=== PATIENT | female | born 1990 | race Asian ===

== ENCOUNTER 2016-07-14 12:12 | Emergency (ER) | payer OTHER ==
[2016-07-14] MEDS ORDERED: SODIUM CHLORIDE 0.9% 1,000 ML IV ONE (13:16)
[2016-07-14] MEDS ORDERED: ONDANSETRON 4 MG/2 ML VIAL IVP STA (13:16)
[2016-07-14] MEDS ORDERED: ONDANSETRON 4 MG/2 ML VIAL ONE (13:36)
== END 2016-07-14 15:10 | disposition home or self-care (01) ==
DX: O21.0 Mild hyperemesis gravidarum (principal); Z3A.01 Less than 8 weeks gestation of pregnancy

== ENCOUNTER 2016-09-03 09:22 | Outpatient (CLI) | payer OTHER ==
[2016-09-03 12:51] LABS: BASOPHILS % (AUTO) 0.3 %; EOSINOPHILS # (AUTO) 0.2 10^3/uL (0.0-0.7); EOSINOPHILS % (AUTO) 3.6 %; HCT - HEMATOCRIT 36.3 % (37.0-47.0); HGB - HEMOGLOBIN 12.6 g/dL (12.0-16.0); LYMPHOCYTES # (AUTO) 1.4 10^3/uL (1.5-3.5); LYMPHOCYTES % (AUTO) 21.6 %; MEAN CORPUSCULAR HEMOGLOBIN 29.9 pg (27.0-31.0); MEAN CORPUSCULAR HGB CONC 34.8 g/dL (32.0-36.0); MEAN CORPUSCULAR VOLUME 86.1 fL (81.0-99.0); MEAN PLATELET VOLUME 9.5 fL (7.9-10.8); MONOCYTES # (AUTO) 0.4 10^3/uL (0.0-1.0); MONOCYTES % (AUTO) 6.2 %; NEUTROPHILS # (AUTO) 4.6 10^3/uL (1.5-6.6); NEUTROPHILS % (AUTO) 68.3 %; RED BLOOD COUNT 4.22 10^6/uL (4.20-5.40); UNCORRECTED WHITE BLOOD COUNT 6.7 x10^3/uL; WHITE BLOOD COUNT 6.7 x10^3/uL (4.8-10.8)
[2016-09-03 12:56] LABS: PH,URINE 6.5 PH (5.0-7.5)
[2016-09-03 13:02] LABS: BILIRUBIN,URINE NEGATIVE (NEGATIVE)
[2016-09-08 18:01] LABS: TEST RESULT REPORT (())
== END 2016-09-03 09:23 | disposition home or self-care (01) ==
LOC: LAB.N 09:22
PROVIDERS: ATTEND Obstetrics & Gynecology
DX: Z36 Encounter for antenatal screening of mother (principal)
CPT/HCPCS: 36415; 81001; 81599; 82947; 85025; 86762; 86780; 86850; 86900; 86901; 87340; 87389

== ENCOUNTER 2016-10-06 07:14 | Outpatient (CLI) | payer OTHER ==
[2016-10-06 07:46] VITALS: BP 118/56
[2016-10-06 08:54] LABS: HEMOGLOBIN A1C 0.4 g/dL
== END 2016-10-06 08:25 | disposition home or self-care (01) ==
LOC: WFO 07:14 → FBP 07:17 → WFO 08:25
PROVIDERS: ATTEND Obstetrics & Gynecology
DX: O99.89 Other specified diseases and conditions complicating pregnancy, childbirth and the puerperium (principal); R10.9 Unspecified abdominal pain; R11.0 Nausea; Z3A.20 20 weeks gestation of pregnancy
CPT/HCPCS: 36415; 83036; 99212

== ENCOUNTER 2016-10-14 07:33 | Outpatient (CLI) | payer OTHER ==
--- NOTE | 2016-10-14 10:43 | Ultrasound Report ---
OB ULTRASOUND: 10/14/2016 CLINICAL INDICATION: anatomy. TECHNIQUE: Real-time scanning was performed with underwriting service representative static images obtained. LAST MENSTRUAL PERIOD 05/13/2016 Clinical Age 21 weeks 4 days US Age 20 weeks 4 days EFW Hadlock 358 g EFW% Hadlock 7% Heart Rate 139 bpm EDC 02/20/2017 US EDC 02/27/2017 BPD [place] 20 weeks 5 days; Mean mm 48.8 HC [place] 20 weeks 4 days; Mean mm 181.4 AC [place] 20 weeks 2 days; Mean mm 149.8 FL [place]lock 20 weeks 6 days; Mean mm 34.3 Presentation cephalic Placental Location anterior Cervical Length 3.6 cm Amniotic Fluid 11.7 cm FINDINGS: There is a single viable intrauterine gestation, in cephalic presentation. heart rate is 139 BPM. The placenta is anterior, without evidence of previa. Amniotic fluid volume is normal, with an JEREMIAH of 11.7. By size, the fetus measures 20.6 weeks (uncertain LMP). The following anatomic structures were visualized and appear normal: The intracranial contents, including the ventricles and posterior fossa; the lips and orbits; the spine; the heart, including 4 chamber view and outflow tracts, and diaphragm; the abdominal contents, including the stomach, the bilateral kidneys, and urinary bladder, as well as a normal 3 vessel cord insertion; 4 limbs. No free fluid or adnexal lesion is appreciated. IMPRESSION: SINGLE VIABLE INTRAUTERINE GESTATION, MEASURING 20.6 WEEKS BY SIZE. NORMAL ANATOMIC SURVEY. [facility]
== END 2016-10-14 07:34 | disposition home or self-care (01) ==
LOC: DI 07:33
PROVIDERS: ATTEND Obstetrics & Gynecology
DX: Z34.82 Encounter for supervision of other normal pregnancy, second trimester (principal)
CPT/HCPCS: 76811

== ENCOUNTER 2016-11-12 09:39 | Outpatient (CLI) | payer OTHER ==
[2016-11-12 19:09] LABS: HCT - HEMATOCRIT 35.9 % (37.0-47.0); HGB - HEMOGLOBIN 12.1 g/dL (12.0-16.0); MEAN CORPUSCULAR HEMOGLOBIN 30.7 pg (27.0-31.0); MEAN CORPUSCULAR HGB CONC 33.6 g/dL (32.0-36.0); MEAN CORPUSCULAR VOLUME 91.4 fL (81.0-99.0); MEAN PLATELET VOLUME 9.3 fL (7.9-10.8); RED BLOOD COUNT 3.93 10^6/uL (4.20-5.40); RED CELL DISTRIBUTION WIDTH 13.4 % (12.0-15.0); WHITE BLOOD COUNT 8.3 x10^3/uL (4.8-10.8)
== END 2016-11-12 09:40 | disposition home or self-care (01) ==
LOC: LAB.N 09:39
PROVIDERS: ATTEND Obstetrics & Gynecology
DX: Z36 Encounter for antenatal screening of mother (principal)
CPT/HCPCS: 36415; 82950; 86850

== ENCOUNTER 2017-01-27 08:00 | Outpatient (CLI) | payer OTHER | END 2017-01-27 08:01 | disposition home or self-care (01) | LOC: LAB.R 08:00 | PROVIDERS: ATTEND Obstetrics & Gynecology | DX: Z36.89 Encounter for other specified antenatal screening (principal) | CPT/HCPCS: 87081 ==

== ENCOUNTER 2017-03-02 07:31 | Inpatient (IN) | payer OTHER ==
[2017-03-02 08:17] LABS: BASOPHILS % (AUTO) 0.3 %; EOSINOPHILS # (AUTO) 0.2 10^3/uL (0.0-0.7); HGB - HEMOGLOBIN 14.7 g/dL (12.0-16.0); LYMPHOCYTES # (AUTO) 1.7 10^3/uL (1.5-3.5); LYMPHOCYTES % (AUTO) 15.9 %; MEAN CORPUSCULAR HEMOGLOBIN 30.9 pg (27.0-31.0); MEAN CORPUSCULAR HGB CONC 34.8 g/dL (32.0-36.0); MEAN CORPUSCULAR VOLUME 88.7 fL (81.0-99.0); MEAN PLATELET VOLUME 9.5 fL (7.9-10.8); MONOCYTES # (AUTO) 0.7 10^3/uL (0.0-1.0); MONOCYTES % (AUTO) 6.2 %; NEUTROPHILS # (AUTO) 8.1 10^3/uL (1.5-6.6); NEUTROPHILS % (AUTO) 75.6 %; PLT - PLATELET COUNT 165 10^3/uL (130-450); RED BLOOD COUNT 4.75 10^6/uL (4.20-5.40); RED CELL DISTRIBUTION WIDTH 12.6 % (12.0-15.0); WHITE BLOOD COUNT 10.7 x10^3/uL (4.8-10.8)
[2017-03-02] MEDS ORDERED: fentaNYL 100 MCG/2 ML VIAL IVP PRN (08:22)
[2017-03-02] MEDS ORDERED: SODIUM CHLORIDE FLUSH 0.9% 10 ML SYRINGE IVP PRN ×2 (08:22→09:36)
[2017-03-02] MEDS ORDERED: ACETAMINOPHEN 325 MG TABLET PO SCH (09:00)
[2017-03-02] MEDS ORDERED: OXYTOCIN/SODIUM CHLORIDE 250 ML IV SCH (09:30)
[2017-03-02] MEDS: LACTATED RINGERS 1,000 ML IV SCH ×3 (09:54→18:53)
[2017-03-02] MEDS ORDERED: LACTATED RINGERS 1,000 ML IV SCH (10:00)
[2017-03-02] MEDS: NEOMYCIN/BACITRA/POLYMYX OINT PACKET TOP SCH ×3 (10:17→23:02)
--- NOTE | 2017-03-02 12:08 | HISTORY & PHYSICAL EXAMINATION ---
DATE OF SERVICE: Physician: Miah Haro MD DIAGNOSES 1. A 41 week 3 day gestation. 2. Uterine contractions, insufficient for progress of labor. 3. Skin Wound L Thigh HISTORY OF PRESENT ILLNESS: This is a 26-year-old [place]ian, 2, para 1- 0-0-1 woman at 41 weeks and 3 days gestation who presents for a planned induction but was noted to have regular uterine contractions without rupture of membranes. Her EDC is 02/20/2017 based on 11-week crown rump length and she [facility]. She reports no signs or symptoms of preeclampsia, fevers/chills, or recent illness. LABS: Chlamydia GC negative. hepatitis B, C, surface antigen negative Blood type O positive, antibody screen negative, RPR negative, rubella immune. Urinalysis negative. Pap smear normal. Glucose challenge test normal at 100 and a group B strep negative. Also, . Last delivery was in 2012 of a 41 week female infant without difficulty. PAST MEDICAL HISTORY: No chronic disease history, or recent problems. PAST SURGICAL HISTORY: Negative. ALLERGIES: NONE. MEDICATIONS: vitamins with iron. FAMILY HISTORY: Genetic screening negative. No familial diseases or genetic problems. SOCIAL HISTORY: . No drug, tobacco or alcohol use reported. 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 REVIEW OF SYSTEMS: CONSTITUTIONAL: Negative. HEENT: Negative. RESPIRATORY: Negative. CARDIAC: Negative. GASTROINTESTINAL: Negative. GENITOURINARY: Negative. MUSCULOSKELETAL: Negative. NEURO: Negative. PSYCHOLOGICAL: Negative. PHYSICAL EXAMINATION: GENERAL: Well groomed comfortable in bed. VITAL SIGNS: Normotensive. HEENT: Neck supple. NECK: No thyromegaly. Dentition in good repair. LUNGS: Clear to auscultation. CARDIAC: Regular. No murmur. No gallop. ABDOMEN: Nondistended. No hepatosplenomegaly. PELVIC: Uterus appropriate size estimate a 7.5-8 pound fetus vertex presentation. Very mild contractions noted. EXTERNAL MONITOR: Category 1. Contractions every 3 minutes. Baseline 150s. Variability present. No worrisome decels. EXTERNAL GENITALIA: Shaven no lesions. Vagina, no blood or discharge. CERVIX: 2 cm, 50% mid position. Soft, 0 station, change from baseline exam on . EXTREMITIES: Skin lesion on right inner thigh suspicious for staph. NEUROLOGIC: Grossly intact. LABORATORY DATA: Labs pending. ASSESSMENT: This is a 41 weeks 3 days gestation who was originally a candidate for induction but presents in early labor. The contraction quality is judged insufficient for progress of labor and therefore, Pitocin augmentation was begun. We had a formal benefit and risk counseling session and informed consent paperwork was signed. PLAN 1. Pitocin augmentation. 2. The patient allowed to ambulate. 3. Currently, the patient is cool to epidural, but will take fentanyl. She was encouraged to reconsider. 4. Culture skin lesion on left thigh, apply neomycin and bandage TD: 03/02/2017 13:06 DANII
--- NOTE | 2017-03-02 12:46 | PROVIDER PROGRESS NOTE ---
Labor Progress Note - Uterine Monitoring Uterine Monitoring Mode: positive: External toco Contraction Frequency (min/apart): Every 35 minutes : AROM, clear fluid Contraction Intensity: positive: Moderate Uterine Resting Tone: positive: Soft - Monitoring Monitor Mode: positive: External ultrasound Heart Rate Baseline: [id number] Heart Rate Variability: positive: Moderate (6-25 bmp) Accelerations: positive: Present, 15x15 Decelerations: positive: None Strip Review: positive: Category I - Vaginal Exam Dilation (in cm): 3 Effacement (%): 60% Station: 0 Cervical Position: Midposition - Labor Progress Note Labor Progress Note/Additional Text: With Pitocin augmentation patient's contractions are strong enough to move her through the latent phase of labor as expected. There is evidence of progressive cervical change. There are no concerns about well-being. Discussed progress with the patient and her . At this time she does not desire epidural. The membranes were ruptured with a small amount of clear fluid noted
[2017-03-02] MEDS: SODIUM CHLORIDE FLUSH 0.9% 10 ML SYRINGE IVP SCH ×2 (13:51→15:26)
[2017-03-02] MEDS ORDERED: SODIUM CHLORIDE FLUSH 0.9% 10 ML SYRINGE IVP SCH (14:00)
--- NOTE | 2017-03-02 15:00 | PROVIDER PROGRESS NOTE ---
Labor Progress Note - Uterine Monitoring Uterine Monitoring Mode: positive: External toco Contraction Frequency (min/apart): Every 2-3 minutes Contraction Intensity: positive: Moderate Uterine Resting Tone: positive: Soft - Monitoring Monitor Mode: positive: External ultrasound Heart Rate Baseline: 140 Heart Rate Variability: positive: Moderate (6-25 bmp) Accelerations: positive: Present, 15x15 Decelerations: positive: None Strip Review: positive: Category I - Vaginal Exam Dilation (in cm): 8 Effacement (%): 80% Station: 0 Cervical Position: Anterior - Labor Progress Note Labor Progress Note/Additional Text: Active phase labor. Pitocin augmentation
--- NOTE | 2017-03-02 15:01 | DELIVERY NOTE ---
Delivery Note - Labor Labor: positive: Augmented by oxytocin - Delivery Method Delivery Method: positive: Spontaneous vaginal delivery - Presentation Presentation: positive: Vertex - Nuchal Cord Nuchal Cord: positive: Present (Tight nuchal cord 1, factor in delivery) - Anesthetic Anesthetic Type: - Amniotic Fluid Description Amniotic Fluid Description: positive: Clear - Episiotomy Type Episiotomy Type: positive: None - Laceration Laceration: positive: None - Delivery Outcome Delivery Outcome: positive: Livebirth - [place] : positive: Suctioned - Cord Cord: positive: 3 vessels - Placenta Placenta: positive: Intact - Estimated Blood Loss Estimated Blood Loss (in cc): 200 - Post Delivery Events Post Delivery Events: positive: No post delivery events - Delivery Comments (Free Text/Narrative) Delivery Comments (Free Text/Narrative): Living female infant; Apgars 7/9; weight pending
[2017-03-02] MEDS ORDERED: LIDOCAINE 1% 50 ML MDV ONE (16:02)
[2017-03-02] MEDS ORDERED: MINERAL OIL LIGHT 10 ML MC ONE (16:02)
[2017-03-02] MEDS ORDERED: OXYTOCIN/SODIUM CHLORIDE 250 ML IV ONE (17:29)
[2017-03-02] MEDS ORDERED: MAGNESIUM HYDROXIDE 2,400 MG/30 ML UDC PO PRN (17:29)
[2017-03-02] MEDS ORDERED: ONDANSETRON 4 MG/2 ML VIAL IVP PRN (17:29)
[2017-03-02] MEDS ORDERED: diphenhydrAMINE 25 MG CAPSULE PO PRN (17:29)
[2017-03-02] MEDS ORDERED: WITCH HAZEL/GLYCERIN 1 EACH MED..PAD TOP PRN (17:29)
[2017-03-02] MEDS ORDERED: HYDROCORTISONE/PRAMOXINE 10 GM PR PRN (17:29)
[2017-03-02] MEDS ORDERED: oxyCODONE 5 MG TABLET PO PRN (17:29)
[2017-03-02] MEDS: ACETAMINOPHEN 500 MG TABLET PO SCH ×2 (19:42→22:38)
[2017-03-02] MEDS: IBUPROFEN 600 MG TABLET PO SCH ×2 (20:30→22:36)
[2017-03-02] MEDS: DOCUSATE SODIUM 100 MG CAPSULE PO SCH ×2 (22:16→22:39)
[2017-03-03] MEDS: IBUPROFEN 600 MG TABLET PO SCH ×4 (04:40→21:32)
--- NOTE | 2017-03-03 06:22 | PROCEDURE REPORT ---
DATE OF SERVICE: 03/02/2017 Physician: Miah Haro MD PRE-DELIVERY DIAGNOSES 1. A 41 week, 3 day gestation. 2. Uterine contractions, insufficient for progress of labor. 3. Pitocin augmentation. POST DELIVERY DIAGNOSES 1. A 41 week, 3 day gestation. 2. Uterine contractions, insufficient for progress of labor. 3. Pitocin augmentation. 4. Nuchal cord x1 (tight). PROCEDURE: Manually assisted vaginal delivery of a living female infant. FOUR SLIDE MACHINE OPERATOR: Miah Haro MD SURGEON: Miah Haro MD, FACOG, [facility] BLOOD LOSS: 200. COMPLICATIONS: None. DRAINS: None. FINDINGS 1. Living female infant weighing 8 lbs 0.8 oz and scoring Apgars of 7/9. No obvious congenital anomalies or trauma. The patient responded to stimulation. 2. A 3-vessel cord. Tight nuchal cord, which was a factor in delivery. Intact placenta without evidence of abruption or infection. 3. Perineum, vagina, and cervix completely intact. Uterus responded well to massage and bleeding minimal. TECHNIQUE: The patient was allowed to labor down and remained composed. She reported a strong urge to push and was found to be at +3 station. She quickly brought the head to +4 station and began to push without difficulty. Rosa maneuver was used to slow the delivery of the head and to milk the perineum. The head atraumatically crowned. The shoulders were tight, but not a dystocia. Controlled delivery of the shoulders was effected. Prior to delivery of shoulders, a tight nuchal cord was found, doubly clamped, and transected. female was placed on the maternal abdomen for stimulation. She was then taken to the warmer for evaluation. Cord blood sample was taken. A segment of cord was clamped and placed on the back table if cord gases were required. Cord gases were not required. The patient began to push with good effort and expelled the placenta intact. There was minimal bleeding. Thefemale genital tract was inspected and found to be undamaged. Uterus was firm. Mother, father, and sister all bonded well with the . Labs: Rh positive, rubella immune, RPR negative. TD: 03/03/2017 07:21 [facility]
[2017-03-03] MEDS: ACETAMINOPHEN 500 MG TABLET PO SCH ×2 (06:30→15:15)
[2017-03-03] MEDS: LACTATED RINGERS 1,000 ML IV SCH (07:53)
[2017-03-03] MEDS: SODIUM CHLORIDE FLUSH 0.9% 10 ML SYRINGE IVP SCH (07:53)
--- NOTE | 2017-03-03 09:18 | PROVIDER PROGRESS NOTE ---
Subjective - General Admit Date: 03/02/17 Procedure Date: 03/02/17 Post Op Days: 1 Procedure Performed: Normal vaginal delivery without lacerations - Review of Systems Wound/Incisions: positive: Healing well Drain Type: 0 General: positive: No symptoms, Fatigue HEENT: positive: No symptoms Pulmonary: positive: No symptoms Cardiovascular: positive: No symptoms Gastrointestinal: positive: No symptoms Genitourinary: positive: No symptoms Musculoskeletal: positive: No symptoms Skin: positive: No symptoms (Wound stable and healing with ointment), Other Psychiatric: positive: No symptoms Objective - Patient Data Vital Signs: Vital Signs x48h Temp Pulse Resp BP Pulse Ox 03/03/17 04:42 98.8 F 71 24 112/57 L 100 Weight: Weight 03/01/17 03/02/17 03/03/17 23:59 23:59 23:59 Weight (kg) 85.275 kg Intake & Output: Intake and Output Totals x24h 03/01/17 03/02/17 03/03/17 23:59 23:59 23:59 Intake Total 985 Output Total 900 Balance 85 - Lab Results Lab Results: 03/02/17 08:06 Other Lab Results: Lab Results x24hrs 03/02/17 Range/Units 08:06 Blood Type O POSITIVE Antibody Screen NEGATIVE - Current Medications Current Medications: Current Medications Generic Name Dose Route Start Last Admin Trade Name Freq PRN Reason Stop Dose Admin Acetaminophen 1,000 mg 03/02/17 18:00 03/03/17 06:30 Tylenol PO 1,000 mg Q8H LUIS FERNANDO Administration Docusate Sodium 100 mg 03/02/17 21:00 03/02/17 22:39 Colace 100mg Capsule PO 100 mg BID LUIS FERNANDO Administration Lactated Ringer's 1,000 mls @ 100 mls/hr 03/02/17 18:00 03/03/17 07:53 Lr IV Not Given .Q10H LUIS FERNANDO Ibuprofen 600 mg 03/02/17 18:00 03/03/17 04:40 Motrin PO 600 mg Q6H LUIS FERNANDO Administration Neomycin/Polymyxin/Bacitracin 1 packet 03/02/17 09:00 03/02/17 23:02 Neosporin Oint Pkt TOP 1 packet BID LUIS FERNANDO Administration Sodium Chloride 10 ml 03/02/17 14:00 03/03/17 07:53 Normal Saline Flush 0.9% IVP Not Given Q8HR LUIS FERNANDO Assessment/Plan - Assessment/Plan Assessment: Patient walking and attending to infant. She states that she is sore tired and requires more time to recuperate. Nursing working on and latch on methods. Another day of hospitalization Required Plan: Supportive care
[2017-03-03] MEDS: DOCUSATE SODIUM 100 MG CAPSULE PO SCH ×2 (09:30→21:32)
[2017-03-03] MEDS: NEOMYCIN/BACITRA/POLYMYX OINT PACKET TOP SCH (09:31)
[2017-03-04] MEDS: ACETAMINOPHEN 500 MG TABLET PO SCH (04:50)
[2017-03-04] MEDS: IBUPROFEN 600 MG TABLET PO SCH ×2 (04:51→10:50)
--- NOTE | 2017-03-04 07:36 | Discharge Plan ---
Discharge Plan Disposition: 01 Home, Self Care Condition: Good Diet: Regular Activity Restrictions: No Restrictions Shower Restrictions: No Driving Restrictions: No Additional Instructions or Follow Up instructions: Patient should follow-up in the office 2 weeks after delivery for standard follow-up and left wound check. At home she should apply Neosporin or bacitracin to the wound daily.Shower and wash as normal. No Smoking: If you smoke, Please STOP! Call for help. Follow-up with: Miah Haro MD [Provider Admit Priv/Credential] -
--- NOTE | 2017-03-04 08:07 | DISCHARGE SUMMARY ---
DATE OF SERVICE: Physician: Miah Haro MD DATE OF ADMISSION: 03/02/2017 DATE OF DISCHARGE: 03/04/2017 DIAGNOSES 1. A 41 week, 3 day gestation in early labor. 2. Pitocin augmentation. 3. Skin wounds left thigh infected with Staph. 4. Tight nuchal cord. PROCEDURE: Vaginal delivery over an intact perineum of a living female (Tahir). HOSPITAL COURSE: The patient is a 26-year-old Vietnamese, 2, para 1-0-0-1 woman at 41 weeks a nd 3 days gestation who was originally a planned induction but was found to be in early labor on presentation. Her EDC was 02/20/2017 confirmed by a 11 week crown rump length. Her care was essentially unremarka ble. Reference typewritten H and P. LABORATORY: Blood type O positive without antibodies. RPR negative. Rubella immune. GC, chlamydia negative. Urinalysis negative. Pap normal. Glucola challenge test 100 and a group B strep negative . HOSPITAL COURSE: The patient was admitted and found to progress to 2 cm, 50% and mid position at 0 s tation. She was begun on Pitocin augmentation. The heart tracing remained stable throughout. Roughly 4 hours into the labor she underwent artificial rupture of membranes that revealed clear nonfoul fluid. The patient moved through the active phase and only had a rare dose of fentanyl. The left thigh lesion was dress ed with bacitracin and covered with a bandage for delivery. The patient underwent an uneventful vaginal delivery at 1647 hours. There was a tight nuchal cord th at was doubly clamped and transected to allow delivery. There was no shoulder dystocia. A living 8 pound 0 .8 ounce female was born scoring Apgars of 7 and 9. Reference delivery note. Placenta was delivered intact. Total blood loss was 200 and no complications noted. Post-delivery, the patient gradually regained self-care and care abilities. She was coached o n breast feeding and spent post-delivery day 1 working on recovering from her delivery. By the second postpar shane day, she was recovered and desired discharge. Complete discharge instructions were given, including warni ng and callback instructions. DISCHARGE MEDICATIONS 1. [id number] Motrin for pain. 2. vitamins with iron. 3. Neosporin to apply on her thigh. Follow up will be in 2 weeks to check on her recovery and to ensure that the small thigh wound is rec overed. No sensitivities still pending. TD: 03/04/2017 09:06
[2017-03-04] MEDS: DOCUSATE SODIUM 100 MG CAPSULE PO SCH (09:08)
[2017-03-04 12:28] VITALS: BP 109/67
--- NOTE | 2017-03-04 15:13 | Labor Flowsheet ---
Labor Flowsheet Datetime Report Generated by CPN: 03/04/2017 15:13 Datetime: 03/04/2017 12:16 VITAL SIGNS NBP Sys/Freda/Mean (mmHg): 109 : 67 : 77 Pulse: 78 LaborFlag: Labor Datetime: 03/02/2017 19:09 SpO2 (%): 100 Datetime: 03/02/2017 16:53 Membrane Comments: Placenta @1653 Datetime: 03/02/2017 16:50 Comments: @1650 Datetime: 03/02/2017 16:48 UTERINE ACTIVITY Monitor Mode: External Frequency (min): 1-1.5 Quality: Strong Duration (sec): 40-80 Pattern: Normal: <= 5 Contractions in 10 Minutes Resting Tone (Palpate): Relaxed ASSESSMENT A Monitor Mode: External US FHR Baseline Changes: No Baseline Change Variability: Moderate 6-25 bpm Accelerations: 15X15 Decelerations: Early Category: Category I Datetime: 03/02/2017 16:43 COMMUNICATION Communication Comments: dr. xiong aware pt is complete Datetime: 03/02/2017 16:21 Patient Care Comments: pt up to BR Datetime: 03/02/2017 16:13 MEDICATIONS Pitocin (milliunits): Increased to @ 9 Datetime: 03/02/2017 15:39 Respirations: 20 Temperature (C): 36.6 Temperature Route: Oral Datetime: 03/02/2017 15:30 Monitor Interventions for UA: [place] Adjusted FHR Baseline Rate : 140 Datetime: 03/02/2017 15:28 Pain Relief Measures: Pain Medication Given Analgesics/Sedatives: Fentanyl (mcg) @ 50 Datetime: 03/02/2017 15:09 PATIENT CARE IV/Blood Work: IV Started Datetime: 03/02/2017 15:06 VAGINAL EXAM Dilatation (cm): 9.0 Effacement (%): 90 Station: 1 Exam by: Dr. Xiong Vaginal Bleeding: None Cervix, Consistency: Soft Cervix, Position: Anterior Vaginal Exam Comments: anterior lip Datetime: 03/02/2017 14:50 I/O Interventions: Up to BR Datetime: 03/02/2017 14:31 Stage of : Labor Datetime: 03/02/2017 14:16 Pain Assessment Comments: Per "faces chart" pt at 7/10 pain. States 4/10. Datetime: 03/02/2017 13:06 Monitor Interventions for FHR: Ultrasound Adjusted Datetime: 03/02/2017 13:00 Contraction Comments: Pt states mild cramping PAIN Pain Scale: 2 Pain Presence: Intermittent Pain Type: Cramping Pain Location: Abdomen Datetime: 03/02/2017 12:35 Membrane Status: Ruptured Membranes Rupture Method: Artificial Amniotic Fluid Color: Clear Amniotic Fluid Amount: Small Amniotic Fluid Odor: Normal Datetime: 03/02/2017 10:34 Patient Position/Activity: Right Lateral Datetime: 03/02/2017 10:00 Pitocin Checklist: At Least 1 Acceleration of 15 bpm x 15 Seconds in 30 Minutes or Adequate Variabi lity; No More than 1 Late Deceleration Occurred in Past 30 Minutes; No More than 5 Uterine Contractio ns in 10 Minutes for any 20 Minute Interval; Uterus Palpates Soft between Contractions Datetime: 03/02/2017 08:45 Membranes Ruptured Date/Time: 03/02/2017 12:34 Datetime: 03/02/2017 08:30 Oxygen Method: Room Air Datetime: 03/02/2017 07:56 Strip Reviewed by: Dr. Xiong
== END 2017-03-04 13:50 | disposition home or self-care (01) | DRG 775 ==
LOC: WFO 07:31 → FBP 07:32 → OBSVTOIN 08:22
PROVIDERS: ADMIT Obstetrics & Gynecology; ATTEND Obstetrics & Gynecology
PROC: 10E0XZZ Delivery of Products of Conception, External Approach (ICD-10-PCS; principal; 2017-03-02)
DX: O48.0 Post-term pregnancy (principal); O69.1XX0 Labor and delivery complicated by cord around neck, with compression, not applicable or unspecified; O9A.22 Injury, poisoning and certain other consequences of external causes complicating childbirth; S70.311D Abrasion, right thigh, subsequent encounter; B95.8 Unspecified staphylococcus as the cause of diseases classified elsewhere; Z3A.41 41 weeks gestation of pregnancy; Z37.0 Single live birth
CPT/HCPCS: 36415; 85025; 86850; 86900; 86901; 87070; 87205

== ENCOUNTER 2017-06-18 08:00 | Outpatient (CLI) | payer OTHER ==
[2017-06-18 12:53] LABS: BASOPHILS % (AUTO) 0.7 %; EOSINOPHILS # (AUTO) 0.3 10^3/uL (0.0-0.7); EOSINOPHILS % (AUTO) 5.3 %; HGB - HEMOGLOBIN 13.8 g/dL (12.0-16.0); LYMPHOCYTES # (AUTO) 1.7 10^3/uL (1.5-3.5); LYMPHOCYTES % (AUTO) 29.8 %; MEAN CORPUSCULAR HEMOGLOBIN 29.9 pg (27.0-31.0); MEAN CORPUSCULAR HGB CONC 33.3 g/dL (32.0-36.0); MEAN CORPUSCULAR VOLUME 89.9 fL (81.0-99.0); MEAN PLATELET VOLUME 9.3 fL (7.9-10.8); MONOCYTES # (AUTO) 0.5 10^3/uL (0.0-1.0); MONOCYTES % (AUTO) 8.5 %; NEUTROPHILS # (AUTO) 3.1 10^3/uL (1.5-6.6); NEUTROPHILS % (AUTO) 55.7 %; PLT - PLATELET COUNT 257 10^3/uL (130-450); RED BLOOD COUNT 4.63 10^6/uL (4.20-5.40); RED CELL DISTRIBUTION WIDTH 12.8 % (12.0-15.0); WHITE BLOOD COUNT 5.6 x10^3/uL (4.8-10.8)
[2017-06-18 13:38] LABS: CHOL/HDL RATIO 3.3 (<4.4); CHOLESTEROL 132 mg/dL; GLUCOSE 83 mg/dL (70-100); HDL CHOLESTEROL 40 mg/dL
[2017-06-18 13:46] LABS: HB2 TOTAL 15.6 g/dL; HEMOGLOBIN A1C 0.47 g/dL; HEMOGLOBIN A1C % 4.9 % (4.6-6.2)
[2017-06-18 14:29] LABS: LDL CHOLESTEROL,DIRECT 75 mg/dL; LDLD/HDL RATIO 1.9 (<4.4)
== END 2017-06-18 08:01 | disposition home or self-care (01) ==
LOC: LAB.N 08:00
PROVIDERS: ATTEND Obstetrics & Gynecology
DX: Z13.0 Encounter for screening for diseases of the blood and blood-forming organs and certain disorders involving the immune mechanism (principal); Z13.1 Encounter for screening for diabetes mellitus; Z13.220 Encounter for screening for lipoid disorders
CPT/HCPCS: 36415; 80061; 82947; 83036; 83721; 84443; 85025

== ENCOUNTER 2019-08-02 15:14 | Outpatient (CLI) | payer OTHER ==
[2019-08-03 05:26] LABS: PROGESTERONE 0.5 ng/mL
== END 2019-08-02 15:15 | disposition home or self-care (01) ==
LOC: LAB 15:14
PROVIDERS: ATTEND Advanced Practice Midwife
DX: Z31.69 Encounter for other general counseling and advice on procreation (principal)
CPT/HCPCS: 36415; 81599; 82670; 83001; 83520; 84144

== ENCOUNTER 2019-10-07 17:44 | Outpatient (CLI) | payer OTHER ==
--- NOTE | 2019-10-08 00:17 | Ultrasound Report ---
PROCEDURE: Pelvic w/Transvaginal INDICATIONS: PRECONCEPTION COUNSELING TECHNIQUE: Real-time scanning was performed of the pelvic organs, with image documentation. Additional endovagi nal scanning was necessary due to incomplete visualization of the adnexal and endometrial structures by transabdominal scanning. COMPARISON: None. FINDINGS: Transabdominal scanning: Limited scanning through the kidneys shows no hydronephrosis. No pathologi c free abdominal or pelvic fluid. Endovaginal scanning: Uterus: Uterus is normal in size at 8.0 x 4.0 x 4.9 cm. The endometrium measures 2.2 mm in combined thickness. A few microcalcifications are seen in the uterine fundus anterior to the endometrium, wh ich are nonspecific. Ovaries: The ovaries are normal in size. The right ovary measures 2.6 x 1.9 x 2.5 cm. The left ovary measures 2.8 x 1.7 x 2.0 cm. IMPRESSION: Small cluster of nonspecific microcalcifications are seen in the right uterine fundus anterior to the endometrium. Otherwise normal pelvic ultrasound. Reviewed by: Ace Bustillo MD on 10/08/2019 12:15 AM PDT Approved by: Ace Bustillo MD on 10/08/2019 12:15 AM PDT Station ID: [id number]
== END 2019-10-07 17:45 | disposition home or self-care (01) ==
LOC: DI 17:44
PROVIDERS: ATTEND Advanced Practice Midwife
DX: Z31.69 Encounter for other general counseling and advice on procreation (principal); N85.8 Other specified noninflammatory disorders of uterus
CPT/HCPCS: 76830; 76856